=== PATIENT | female | born 1955 | race African-American/Black ===

== ENCOUNTER 2019-03-29 12:08 | Emergency (ER) | payer OTHER ==
--- NOTE | 2019-03-29 12:16 | PDOC ---
Rapid Medical Evaluation Chief Complaint: Blood Sugar Problem Time Seen by Provider: 03/29/19 12:13 Medical Evaluation: Allergies Allergy/AdvReac Type Severity Reaction Status Date / Time No Known Allergies Allergy Verified 03/29/19 12:13 03/29/19 12:14 I have performed a brief in-person evaluation of this patient. The patient presents with a chief complaint of: High Blood sugar at home 550. Pertinent physical exam findings: well and denies symptoms/ I have ordered the following: CBC/ CMP/ Acetone/ UA The patient will proceed to the ED for further evaluation. Discharge Disposition - Diagnosis High blood sugar - Referrals - Patient Instructions - Post Discharge Activity
[2019-03-29 12:17] VITALS: BMI 34.9
[2019-03-29] MEDS ORDERED: SODIUM CHLORIDE 1,000 ML IV STA ×2 (13:06→17:07)
--- NOTE | 2019-03-29 13:06 | PDOC ---
History of Present Illness - General Chief Complaint: Blood Sugar Problem Stated Complaint: HIGH BLOOD SUGAR Time Seen by Provider: 03/29/19 12:13 History Source: Patient Exam Limitations: No Limitations - History of Present Illness Initial Comments: 03/29/19 12:55 63 yo female pmh of HTN and DM presents to the ED for elevated blood sugars. P states she use to see Dr. Zee PCP and was treated with insulin for DM, changed to Dr. Stark which took over 1 year to do, was not on any medications for DM. States Monday she noted dry mouth, increased thirst and increased urination, pt works in a [employer], BS was checked and found to be undetectable. Pt called PCP [facility] 03/26, prescribed Metformin. Pt states while at work today she decided to check her BS again, noted to be 550 and was told to go to the ER. Pt denies abdominal pain, changes in vision, CP, SOB, headaches, changes in bowel or bladder habits. States she feels well Past History - Past Medical History Allergies/Adverse Reactions: Allergies Allergy/AdvReac Type Severity Reaction Status Date / Time No Known Allergies Allergy Verified 03/29/19 12:13 Home Medications: Ambulatory Orders Amlodipine Besylate [Norvasc -] 10 mg PO DAILY 03/29/19 metFORMIN HCL [Glucophage -] 1,000 mg PO BID 03/29/19 COPD: No Diabetes: Yes (NIDDM) HTN: Yes - Surgical History Orthopedic Surgery: Yes (R. Wrist) - Immunization History Immunization Up to Date: Yes - Suicide/Smoking/Psychosocial Hx Smoking Status: No Smoking History: Never smoked Have you smoked in the past 12 months: No Number of Cigarettes Smoked Daily: 0 Hx Alcohol Use: No Drug/Substance Use Hx: No Substance Use Type: Alcohol Hx Substance Use Treatment: No *Physical Exam - Vital Signs Last Vital Signs Temp Pulse Resp BP Pulse Ox 98.3 F 80 18 155/75 98 03/29/19 12:14 03/29/19 12:14 03/29/19 12:14 03/29/19 12:14 03/29/19 12:14 ED Treatment Course - LABORATORY CBC & Chemistry Diagram: 03/29/19 12:57 03/29/19 18:47 *DC/Admit/Observation/Transfer Diagnosis at time of Disposition: High blood sugar - Discharge Dispostion Disposition: HOME Condition at time of disposition: Stable Decision to Admit order: No - Referrals Referrals: Anabell Stark MD [Primary Care Provider] - - Patient Instructions Printed Discharge Instructions: DI for Hyperglycemia -- Adult Additional Instructions: Please see your primary doctor within the next 48 hours. Take your home dosed medications as prescribed. Return to the R for new or concerning symptoms including but not limited to: changes in vision, changes in behaviour, headaches , abdominal pain. Thank you - Post Discharge Activity
[2019-03-29 13:09] LABS: EOS % 0.6 % (0-4.5); HEMOGLOBIN 12.1 GM/dL (10.7-15.3); LYMPH % 18.7 % (8-40); MCH 27.9 pg (25.7-33.7); MCHC 31.9 g/dl (32.0-36.0); MEAN CELL VOLUME 87.3 fl (80-96); MEAN PLT VOLUME 9.1 fl (7.5-11.1); MONO % 5.8 % (3.8-10.2); NEUT % 73.9 % (42.8-82.8); PLATELET COUNT 312 K/MM3 (134-434); RBC 4.36 M/mm3 (3.60-5.2); RDW 14.4 % (11.6-15.6); WHITE BLOOD COUNT 11.2 K/mm3 (4.0-10.0)
[2019-03-29 13:14] LABS: URINE APPEARANCE CLEAR; URINE BILIRUBIN NEGATIVE (NEGATIVE); URINE COLOR YELLOW; URINE GLUCOSE (UA) 3+ (NEGATIVE); URINE KETONE NEGATIVE (NEGATIVE); URINE LEUK ESTERASE 1+ (NEGATIVE); URINE NITRITE NEGATIVE (NEGATIVE); URINE PROTEIN 2+ (NEGATIVE); URINE UROBILINOGEN 0.2 mg/dL (0.2-1.0)
[2019-03-29 13:43] LABS: ALBUMIN 3.5 g/dl (3.4-5.0); BILIRUBIN,TOTAL 0.4 mg/dL (0.2-1); CALCIUM 9.3 mg/dL (8.5-10.1); POTASSIUM 4.5 mmol/L (3.5-5.1); TOT PROT 7.7 g/dl (6.4-8.2)
[2019-03-29 13:48] LABS: EPI CELLS 6.1 /HPF (0-5/HPF); URINE BACTERIA 226.3 /hpf (NEGATIVE); URINE CASTS 2.23 /lpf (0-8); URINE RBC 1.9 /hpf (0-4); URINE WBC 10.9 /hpf (0-5)
[2019-03-29] MEDS ORDERED: INSULIN REGULAR HUMAN 100 UNITS/ML *VIAL IVPUSH ONE (15:26)
[2019-03-29] MEDS ORDERED: INSULIN REGULAR HUMAN 100 UNITS/ML *VIAL ONE (15:40)
--- NOTE | 2019-03-29 15:40 | PDOC ---
Documentation entered by Nayeli Cartagena SCRIBE, acting as scribe for Jose Samuels MD. Jose Samuels MD: This documentation has been prepared by the Osiel wetzel Daisy, SCRIBE, under my direction and personally reviewed by me in its entirety. I confirm that the documentation accurately reflects all work, treatment, procedures, and medical decision making performed by me. Attending Attestation - Resident Resident Name: Jaime Cesar - ED Attending Attestation I have performed the following: I have examined & evaluated the patient, The case was reviewed & discussed with the resident, I agree w/resident's findings & plan, Exceptions are as noted - HPI HPI: 03/29/19 12:51 The patient is a 63YOF with a PMH of HTN, DM who presents for evaluation of elevated blood glucose. She reports she began experiencing increased urination and dry mouth this week. She measured her blood glucose earlier this week and was found to be out of range. She contacted Dr. Stark over the phone and was prescribed metformin and told to follow with in her office next week. Patient took her blood glucose today and was found to be 550, prompting her to come to the ER. Denies cp, sob, fever, chills, N/V/C/D, hematuria, dysuria. Allergies: NKDA PCP: Dr. Stark - Physicial Exam PE: 03/29/19 15:38 "GENERAL: Awake, alert, and fully oriented, in no acute distress. HEAD: No signs of trauma EYES: PERRLA, EOMI, sclera anicteric, conjunctiva clear ENT: Auricles normal inspection, hearing grossly normal, nares patent, oropharynx clear without exudates. Moist mucosa NECK: Nontender, no stepoffs, Normal ROM, supple, no lymphadenopathy, JVD, or masses LUNGS: Breath sounds equal, clear to auscultation bilaterally. No wheezes, and no crackles HEART: Regular rate and rhythm, normal S1 and S2, no murmurs, rubs or gallops ABDOMEN: Soft, nontender, normoactive bowel sounds. No guarding, no rebound. No masses EXTREMITIES: Normal range of motion, no edema. No clubbing or cyanosis. No cords, erythema, or tenderness NEUROLOGICAL: Cranial nerves II through XII intact. 5/5 strength and sensation in all extremities, Normal speech, normal gait, normal cerebellar function SKIN: Warm, Dry, normal turgor, no rashes or lesions noted. - Medical Decision Making 03/29/19 15:39 63 F with elevated fingerstick, likely 2/2 inadequate glucose control. Will r/o DKA/HHS. - Labs - IVF - insulin 03/29/19 17:07 Labs notable for glucose 500 Cr 2.0, increased from 0.7 Pt given 1L NS I spoke with Dr. Stark regarding admitting pt vs DC'ing with outpt f/u. We agree to recheck CMP after an additional 1L NS. If labs improved, pt can be DC'ed. Otherwise, will admit obs. 03/29/19 19:45 Cr improved to 1.9 Glucose now in 300s Pt is well appearing, with normal vitals. Clinically stable for DC at this time. I discussed the physical exam findings, ancillary test results and final diagnoses with the patient. I answered all of the patient's questions. The patient was satisfied with the care received and felt comfortable with the discharge plan and treatment plan. The patient agrees to follow up with the primary care physician within 24-72 hours.
[2019-03-29 19:30] LABS: ALBUMIN 3.3 g/dl (3.4-5.0); BILIRUBIN,TOTAL 0.4 mg/dL (0.2-1); CALCIUM 8.9 mg/dL (8.5-10.1); CREATININE 1.9 mg/dL (0.55-1.3); POTASSIUM 4.3 mmol/L (3.5-5.1); TOT PROT 7.3 g/dl (6.4-8.2)
[2019-03-29 20:05] VITALS: BP 129/81; PULSE 72; TEMP 98.3
== END 2019-03-29 20:05 | disposition home or self-care (01) ==
LOC: JER 12:08
PROC: 3E0337Z Introduction of Electrolytic and Water Balance Substance into Peripheral Vein, Percutaneous Approach (ICD-10-PCS; principal; 2019-03-29)
PROC: 3E0337Z Introduction of Electrolytic and Water Balance Substance into Peripheral Vein, Percutaneous Approach (ICD-10-PCS; 2019-03-29)
PROC: 3E033VG Introduction of Insulin into Peripheral Vein, Percutaneous Approach (ICD-10-PCS; 2019-03-29)
DX: E11.65 Type 2 diabetes mellitus with hyperglycemia (principal); Z79.84 Long term (current) use of oral hypoglycemic drugs; I10 Essential (primary) hypertension
CPT/HCPCS: 36415; 80053; 81003; 82962; 85025; 99282-25; J7030